=== PATIENT | male | born 1970 | race Caucasian/White ===

== ENCOUNTER 2016-08-21 12:54 | Emergency (ER) | payer SELFPAY ==
[~2016-08-21] VITALS: Ht 172.7 cm; Wt 83.0 kg
[~2016-08-21 12:54] MED LIST: FAMO-134 PO; INSU3INS6 SUBCUT; METO-293 PO; lantus
[2016-08-21] MEDS ORDERED: SODIUM CHLORIDE 0.9% 1,000 ML IV ONE (13:30)
[2016-08-21] MEDS ORDERED: INSULIN REGULAR (HUMULIN R) 300UNITS/3ML IV ONE (13:45)
[2016-08-21 14:24] LABS: CARBON DIOXIDE 22 mEq/L (21-32); CHLORIDE 96 mEq/L (98-107)
[2016-08-21 14:28] LABS: BASOPHILS % 0.7 % (0.0-2.0); EOSINOPHILS % 0.8 % (0.0-5.0); HEMATOCRIT. 45.6 % (42.0-52.0); HEMOGLOBIN. 16.7 g/dL (14.0-18.0); LYMPHOCYTES % 25.2 % (20.0-50.0); MEAN CORPUSCULAR HEMOGLOBIN 30.3 pg (28.0-32.0); MEAN CORPUSCULAR VOLUME 82.5 fL (80.0-94.0); MEAN PLATELET VOLUME 8.6 fl (7.4-10.4); MONOCYTES % 3.4 % (2.0-8.0); NEUTROPHILS % 69.9 % (40.0-76.0); PLATELET 278 x1000/uL (130-400); RED BLOOD CELL COUNT 5.52 mill/uL (4.7-6.1); RED CELL DISTRIBUTION WIDTH 13.3 % (11.6-14.6)
[2016-08-21] MEDS ORDERED: HYDROCODONE/APAP 7.5/325MG 1 TAB TABLET PO PRN (15:00)
[2016-08-21] MEDS ORDERED: INSULIN REGULAR (HUMULIN R) 300UNITS/3ML IV NR (15:00)
[2016-08-21] MEDS ORDERED: SODIUM CHLORIDE 0.9% 1,000 ML IV NR (15:00)
[2016-08-21 15:07] VITALS: BP 112/57
== END 2016-08-21 17:30 | disposition home or self-care (01) ==
LOC: ER 12:55
DX: E10.65 Type 1 diabetes mellitus with hyperglycemia (principal); M19.90 Unspecified osteoarthritis, unspecified site; E78.00 Pure hypercholesterolemia, unspecified; F32.9 Major depressive disorder, single episode, unspecified; E87.6 Hypokalemia; E86.0 Dehydration; E83.51 Hypocalcemia; Z90.410 Acquired total absence of pancreas; Z79.4 Long term (current) use of insulin; Z88.0 Allergy status to penicillin
CPT/HCPCS: 36415; 80048; 82962; 85025; 96361; 96374; 96376; 99285; J1815; J7030; Z7610

== ENCOUNTER 2016-11-22 15:54 | Emergency (ER) | payer OTHER, MEDICAID ==
[~2016-11-22] VITALS: Ht 172.7 cm; Wt 80.0 kg
[2016-11-22] MEDS ORDERED: ONDANSETRON HCL 4MG/2ML VIAL IV STA (16:31)
[2016-11-22] MEDS ORDERED: MORPHINE SULFATE 4 MG/ML CPJ (NOT FOR IM USE) IV STA (16:31)
[2016-11-22] MEDS ORDERED: SODIUM CHLORIDE 0.9% 1,000 ML IV ONE (16:31)
[2016-11-22 16:58] LABS: BASOPHILS % 0.2 % (0.0-2.0); EOSINOPHILS % 0.5 % (0.0-5.0); HEMATOCRIT. 43.5 % (42.0-52.0); HEMOGLOBIN. 15.3 g/dL (14.0-18.0); LYMPHOCYTES % 26.4 % (20.0-50.0); MEAN CORPUSCULAR HEMOGLOBIN 28.8 pg (28.0-32.0); MEAN CORPUSCULAR VOLUME 81.6 fL (80.0-94.0); MEAN PLATELET VOLUME 8.6 fl (7.4-10.4); MONOCYTES % 8.1 % (2.0-8.0); NEUTROPHILS % 64.8 % (40.0-76.0); PLATELET 243 x1000/uL (130-400); RED BLOOD CELL COUNT 5.33 mill/uL (4.7-6.1); RED CELL DISTRIBUTION WIDTH 13.3 % (11.6-14.6)
[2016-11-22 17:04] LABS: CHLORIDE 95 mEq/L (98-107)
[2016-11-22 17:09] LABS: AMYLASE 17 IU/L (25-115); CARBON DIOXIDE 26 mEq/L (21-32)
[2016-11-22 17:17] LABS: BETA HYDROXYBUTYRATE 0.5 mMol/L (0.0-0.3); TROPONIN I < 0.02 ng/mL (0.00-0.04)
[2016-11-22 19:51] VITALS: BP 156/78
== END 2016-11-22 20:30 | disposition home or self-care (01) ==
LOC: CANBEDREQ 19:21 → ER 20:04
DX: E11.65 Type 2 diabetes mellitus with hyperglycemia (principal); E86.0 Dehydration; K85.90 Acute pancreatitis without necrosis or infection, unspecified; I10 Essential (primary) hypertension; E78.00 Pure hypercholesterolemia, unspecified; Z79.4 Long term (current) use of insulin; Z88.0 Allergy status to penicillin
CPT/HCPCS: 36415; 71010; 80053; 82010; 82150; 82962; 83690; 84484; 85025; 93005; 96361; 96374; 96375; 99285; J2270; J2405; J7030; Z7610

== ENCOUNTER 2020-10-04 17:38 | Emergency (ER) | payer MEDICAID, OTHER ==
[~2020-10-04] VITALS: Ht 172.7 cm; Wt 55.0 kg
[~2020-10-04 17:38] MED LIST changes: +LANTUSUD SUBCUT; +TRAM100C3 PO
[2020-10-04] MEDS ORDERED: SODIUM CHLORIDE 0.9% 1,000 ML IV ONE ×2 (18:45→20:15)
[2020-10-04 19:12] LABS: BASOPHILS % 0.1 % (0.0-2.0); EOSINOPHILS % 1.4 % (0.0-5.0); HEMATOCRIT. 39.9 % (42.0-52.0); HEMOGLOBIN. 13.9 g/dL (14.0-18.0); LYMPHOCYTES % 30.2 % (20.0-50.0); MEAN CORPUSCULAR HEMOGLOBIN 30.6 pg (28.0-32.0); MEAN CORPUSCULAR VOLUME 88.1 fL (80.0-94.0); MEAN PLATELET VOLUME 8.8 fl (7.4-10.4); MONOCYTES % 6.7 % (2.0-8.0); NEUTROPHILS % 61.6 % (40.0-76.0); PLATELET 275 x1000/uL (130-400); RED BLOOD CELL COUNT 4.53 mill/uL (4.7-6.1); RED CELL DISTRIBUTION WIDTH 13.7 % (11.6-14.6)
[2020-10-04 19:20] LABS: CHLORIDE 95 mEq/L (98-107)
[2020-10-04] MEDS ORDERED: INSULIN REGULAR (HUMULIN R) 300UNITS/3ML VIAL IV ONE ×2 (20:15→21:00)
[2020-10-04] MEDS ORDERED: POTASSIUM CHLORIDE 20MEQ TABLET SR PO ONE (20:15)
[2020-10-04] MEDS ORDERED: KCL 20MEQ/100ML PREMIX 100 ML IV ONE (20:15)
[2020-10-04] MEDS ORDERED: ACETAMINOPHEN 325MG TABLET PO ONE (23:00)
[2020-10-05 00:44] VITALS: BP 124/71
[2020-10-05] MEDS ORDERED: KETOROLAC 15MG/ML VIAL IV ONE (00:45)
== END 2020-10-05 01:32 | disposition short-term general hospital (02) ==
LOC: ER 17:38 → CANBEDREQ 23:33 → ER 10-05 01:32
DX: R55 Syncope and collapse (principal); R10.84 Generalized abdominal pain; E11.65 Type 2 diabetes mellitus with hyperglycemia; D64.9 Anemia, unspecified; E87.1 Hypo-osmolality and hyponatremia; I44.4 Left anterior fascicular block; E87.6 Hypokalemia; I10 Essential (primary) hypertension; F12.90 Cannabis use, unspecified, uncomplicated; Z79.4 Long term (current) use of insulin; Z87.19 Personal history of other diseases of the digestive system; Z79.899 Other long term (current) drug therapy; Z91.81 History of falling
CPT/HCPCS: 36415; 71045; 74176; 80053; 82962; 84484; 85025; 93005; 96361; 96374; 96375; 99285; J1815; J1885; J3480; J7030

== ENCOUNTER 2021-08-30 18:58 | Emergency (ER) | payer OTHER ==
[~2021-08-30] VITALS: Ht 170.2 cm; Wt 54.0 kg
[2021-08-30] MEDS ORDERED: SODIUM CHLORIDE 0.9% 1,000 ML IV ONE ×2 (21:45→22:45)
[2021-08-30 21:57] LABS: BASOPHILS % 0.1 % (0.0-2.0); HEMATOCRIT. 37.2 % (42.0-52.0); HEMOGLOBIN. 12.5 g/dL (14.0-18.0); LYMPHOCYTES % 21.9 % (20.0-50.0); MEAN CORPUSCULAR HEMOGLOBIN 29.3 pg (28.0-32.0); MEAN CORPUSCULAR VOLUME 86.9 fL (80.0-94.0); MEAN PLATELET VOLUME 8.7 fl (7.4-10.4); MONOCYTES % 7.7 % (2.0-8.0); NEUTROPHILS % 69.3 % (40.0-76.0); PLATELET 218 x1000/uL (130-400); RED BLOOD CELL COUNT 4.28 mill/uL (4.7-6.1); RED CELL DISTRIBUTION WIDTH 13.3 % (11.6-14.6)
[2021-08-30 22:04] LABS: CHLORIDE 97 mEq/L (98-107)
[2021-08-30 22:14] LABS: BETA HYDROXYBUTYRATE 0.5 mMol/L (0.0-0.3)
[2021-08-30 22:44] LABS: CLARITY URINE CLOUDY (CLEAR); COLOR URINE YELLOW (YELLOW); KETONES URINE 1+ (NEGATIVE); LEUKOCYTE ESTERASE URINE 1+ (NEGATIVE); NITRITE URINE NEGATIVE (NEGATIVE); OCCULT BLOOD URINE TRACE (NEGATIVE); PH URINE 5.5 (4.5-8.0); PROTEIN URINE TRACE (NEGATIVE); SPECIFIC GRAVITY URINE 1.039 (1.005-1.030); UROBILINOGEN URINE 0.2 E.U./dL (0.2-1.0)
[2021-08-30] MEDS ORDERED: KETOROLAC 15MG/ML VIAL IV ONE (22:45)
[2021-08-30] MEDS ORDERED: INSULIN REGULAR (HUMULIN R) 300UNITS/3ML VIAL SUBCUT ONE (22:45)
[2021-08-31] MEDS ORDERED: CEFTRIAXONE 1 G PREMIX 50 ML IV ONE
[2021-08-31] MEDS ORDERED: HYDROCODONE/ACETAMINOPHEN 5/325MG TABLET PO ONE (01:15)
[2021-08-31] MEDS ORDERED: INSULIN REGULAR (HUMULIN R) 300UNITS/3ML VIAL SUBCUT ONE (01:15)
[2021-08-31] MEDS ORDERED: MORPHINE SULFATE 4 MG/ML CPJ (NOT FOR IM USE) IV ONE ×2 (03:00→06:00)
[2021-08-31 07:28] VITALS: BP 91/55
[2021-08-31] MEDS ORDERED: ACETAMINOPHEN 325MG TABLET PO NR (08:15)
== END 2021-08-31 05:55 | disposition short-term general hospital (02) ==
LOC: ER 18:58
DX: N30.90 Cystitis, unspecified without hematuria (principal); E11.65 Type 2 diabetes mellitus with hyperglycemia; R55 Syncope and collapse; I10 Essential (primary) hypertension; F12.10 Cannabis abuse, uncomplicated; Z79.899 Other long term (current) drug therapy
CPT/HCPCS: 36415; 70450; 71045; 80053; 81003; 82010; 82962; 83690; 84484; 85025; 87040; 87086; 93005; 96361; 96372; 96374; 96375; 96376; 99285; J0696; J1815; J1885; J2270; J7030

== ENCOUNTER 2021-10-28 17:20 | Inpatient (IN) | payer OTHER ==
[~2021-10-28] VITALS: Ht 172.7 cm; Wt 43.1 kg
[2021-10-28 21:19] LABS: BASOPHILS % 0.1 % (0.0-2.0); EOSINOPHILS % 0.4 % (0.0-5.0); HEMATOCRIT. 36.8 % (42.0-52.0); HEMOGLOBIN. 12.8 g/dL (14.0-18.0); LYMPHOCYTES % 36.2 % (20.0-50.0); MEAN CORPUSCULAR HEMOGLOBIN 29.3 pg (28.0-32.0); MEAN PLATELET VOLUME 7.4 fl (7.4-10.4); MONOCYTES % 6.3 % (2.0-8.0); PLATELET 300 x1000/uL (130-400); RED BLOOD CELL COUNT 4.38 mill/uL (4.7-6.1); RED CELL DISTRIBUTION WIDTH 12.8 % (11.6-14.6)
[2021-10-28] MEDS ORDERED: ONDANSETRON HCL 4MG/2ML INJ IV NR (21:25)
[2021-10-28] MEDS ORDERED: MORPHINE SULFATE 4 MG/ML CPJ (NOT FOR IM USE) IV NR (21:25)
[2021-10-28 21:26] LABS: CHLORIDE 93 mEq/L (98-107)
[2021-10-28] MEDS ORDERED: SODIUM CHLORIDE 0.9% 1,000 ML IV ONE (21:30)
[2021-10-28 21:32] LABS: INR 1.1; PROTHROMBIN TIME 11.3 sec (9.6-11.0)
[2021-10-28 22:21] LABS: CLARITY URINE CLOUDY (CLEAR); COLOR URINE YELLOW (YELLOW); KETONES URINE 2+ (NEGATIVE); LEUKOCYTE ESTERASE URINE 1+ (NEGATIVE); NITRITE URINE NEGATIVE (NEGATIVE); OCCULT BLOOD URINE NEGATIVE (NEGATIVE); PH URINE 6.5 (4.5-8.0); PROTEIN URINE TRACE (NEGATIVE); SPECIFIC GRAVITY URINE 1.045 (1.005-1.030); UROBILINOGEN URINE 0.2 E.U./dL (0.2-1.0)
[2021-10-28] MEDS ORDERED: KCL 10MEQ/50ML PREMIX 50 ML IV ONE (23:00)
[2021-10-28] MEDS ORDERED: CEFTRIAXONE 1 G PREMIX 50 ML IV NR (23:00)
[2021-10-28] MEDS ORDERED: POTASSIUM CHLORIDE 20MEQ TABLET SR PO ONE (23:00)
[2021-10-29] MEDS ORDERED: MAGNESIUM 1 G PREMIX 100 ML IV ONE (00:45)
[2021-10-29] MEDS ORDERED: KETOROLAC 15MG/ML VIAL IV ONE (03:45)
[2021-10-29 08:45] VITALS: BP 129/92
[2021-10-29 10:00] VITALS: BP 129/92
[2021-10-29] MEDS ORDERED: ONDANSETRON HCL 4MG/2ML INJ IV PRN (10:30)
[2021-10-29] MEDS ORDERED: DEXTROSE 50% WATER 50ML SYRINGE IV PRN (10:30)
[2021-10-29] MEDS ORDERED: ACETAMINOPHEN 325MG TABLET PO PRN (10:30)
[2021-10-29] MEDS ORDERED: CEFTRIAXONE 1 G PREMIX 50 ML IV SCH (10:30)
[2021-10-29 12:00] VITALS: BP 114/86
[2021-10-29] MEDS: BLOOD SUGAR DIAGNOSTIC STRIP TEST SCH ×3 (12:20→21:00)
[2021-10-29] MEDS ORDERED: NALOXONE HCL 0.4MG/ML VIAL IV PRN (13:00)
[2021-10-29] MEDS: CEFTRIAXONE 1,000 MG in DEXTROSE 5% WATER 50 ML IV SCH (13:46)
[2021-10-29] MEDS: HYDROCODONE/ACETAMINOPHEN 5/325MG TABLET PO PRN ×2 (13:47→21:36)
[2021-10-29] MEDS: INSULIN LISPRO 100 UNITS/ML SUBCUT SCH ×3 (13:55→21:35)
[2021-10-29 16:00] VITALS: BP 126/88
[2021-10-29] MEDS ORDERED: METOCLOPRAMIDE HCL 10MG/2ML VIAL IV NR ×2 (16:30→20:30)
[2021-10-29] MEDS ORDERED: BISACODYL 5MG TABLET PO NR ×2 (16:30→20:30)
[2021-10-29] MEDS ORDERED: SORBITOL 70% SOLN 30ML PO NR ×2 (17:00→21:00)
[2021-10-29] MEDS: SODIUM CHLORIDE 0.45% 1,000 ML IV SCH (18:22)
[2021-10-29 20:00] VITALS: BP 88/59
[2021-10-29 21:40] LABS: CHLORIDE 102 mEq/L (98-107)
[2021-10-30] VITALS: BP 112/68
[2021-10-30] MEDS ORDERED: POTASSIUM CHLORIDE 20MEQ TABLET SR PO NR (00:15)
[2021-10-30] MEDS: SODIUM CHLORIDE 0.45% 1,000 ML IV SCH ×2 (02:05→14:36)
[2021-10-30 04:00] VITALS: BP 118/83
[2021-10-30 07:11] LABS: BASOPHILS % 0.1 % (0.0-2.0); CHLORIDE 101 mEq/L (98-107); EOSINOPHILS % 0.8 % (0.0-5.0); HEMATOCRIT. 37.2 % (42.0-52.0); HEMOGLOBIN. 12.9 g/dL (14.0-18.0); LYMPHOCYTES % 41.1 % (20.0-50.0); MEAN CORPUSCULAR HEMOGLOBIN 29.4 pg (28.0-32.0); MEAN CORPUSCULAR VOLUME 84.7 fL (80.0-94.0); MEAN PLATELET VOLUME 8.1 fl (7.4-10.4); PLATELET 309 x1000/uL (130-400); RED BLOOD CELL COUNT 4.39 mill/uL (4.7-6.1)
[2021-10-30 07:21] LABS: INR 1.1; PROTHROMBIN TIME 11.9 sec (9.6-11.0); TOTAL IRON BINDING CAPACITY 211 ug/dL (250-450)
[2021-10-30 07:30] LABS: FERRITIN 297 ng/mL (22-322)
[2021-10-30 07:40] LABS: VITAMIN B12 SERUM >2000 pg/mL pg/mL (211-911)
[2021-10-30 08:00] VITALS: BP 154/100
[2021-10-30] MEDS: BLOOD SUGAR DIAGNOSTIC STRIP TEST SCH ×4 (08:17→21:00)
[2021-10-30] MEDS: INSULIN LISPRO 100 UNITS/ML SUBCUT SCH ×3 (08:22→18:12)
[2021-10-30] MEDS ORDERED: LORAZEPAM 1MG TABLET PO NR (10:00)
[2021-10-30] MEDS ORDERED: NITR0.4T49 SL (11:12)
[2021-10-30] MEDS: HYDROCODONE/ACETAMINOPHEN 5/325MG TABLET PO PRN (11:20)
[2021-10-30] MEDS ORDERED: *PATIENT'S OWN MEDICATION STORAGE XX SCH (11:30)
[2021-10-30 12:00] VITALS: BP 157/100
[2021-10-30] MEDS ORDERED: NICOTINE 14MG PATCH TD SCH (12:45)
[2021-10-30] MEDS ORDERED: POTASSIUM CHLORIDE 20MEQ TABLET SR PO SCH (12:45)
[2021-10-30] MEDS: METOCLOPRAMIDE HCL 10MG/2ML VIAL IV SCH ×3 (14:31→21:23)
[2021-10-30] MEDS: SORBITOL 70% SOLN 30ML PO SCH ×2 (14:31→18:11)
[2021-10-30] MEDS: BISACODYL 5MG TABLET PO SCH ×3 (14:32→21:24)
[2021-10-30] MEDS: CEFTRIAXONE 1,000 MG in DEXTROSE 5% WATER 50 ML IV SCH (14:36)
[2021-10-30] MEDS: MIDODRINE HCL 5MG TABLET PO SCH ×2 (14:40→16:39)
[2021-10-30 16:00] VITALS: BP 96/68
[2021-10-31] MEDS: INSULIN LISPRO 100 UNITS/ML SUBCUT SCH ×5 (01:28→21:46)
[2021-10-31] MEDS: METOCLOPRAMIDE HCL 10MG/2ML VIAL IV SCH (01:40)
[2021-10-31 03:05] LABS: BASOPHILS % 0.1 % (0.0-2.0); EOSINOPHILS % 0.9 % (0.0-5.0); HEMATOCRIT. 36.4 % (42.0-52.0); HEMOGLOBIN. 12.4 g/dL (14.0-18.0); MEAN CORPUSCULAR HEMOGLOBIN 29.4 pg (28.0-32.0); MEAN CORPUSCULAR VOLUME 86.1 fL (80.0-94.0); MEAN PLATELET VOLUME 7.9 fl (7.4-10.4); MONOCYTES % 6.9 % (2.0-8.0); NEUTROPHILS % 66.1 % (40.0-76.0); PLATELET 315 x1000/uL (130-400); RED BLOOD CELL COUNT 4.22 mill/uL (4.7-6.1); RED CELL DISTRIBUTION WIDTH 13.1 % (11.6-14.6)
[2021-10-31 03:27] LABS: CHLORIDE 105 mEq/L (98-107)
[2021-10-31 03:35] LABS: PROTHROMBIN TIME 11.1 sec (9.6-11.0)
[2021-10-31] MEDS: SORBITOL 70% SOLN 30ML PO SCH ×2 (03:50→06:50)
[2021-10-31 04:00] VITALS: BP 99/73
[2021-10-31] MEDS: BISACODYL 5MG TABLET PO SCH (06:50)
[2021-10-31] MEDS ORDERED: SODIUM CHLORIDE 0.9% 500 ML IV ONE ×2 (07:00→07:30)
[2021-10-31] MEDS: BLOOD SUGAR DIAGNOSTIC STRIP TEST SCH ×4 (07:41→21:47)
[2021-10-31] MEDS: SODIUM CHLORIDE 0.9% 1,000 ML IV SCH ×2 (07:56→18:37)
[2021-10-31 08:00] VITALS: BP 120/89
[2021-10-31] MEDS: MIDODRINE HCL 5MG TABLET PO SCH ×4 (08:24→18:37)
[2021-10-31] MEDS: INSULIN GLARGINE 100 UNITS/ML SUBCUT SCH ×2 (09:40→21:31)
[2021-10-31 12:00] VITALS: BP 106/69
[2021-10-31] MEDS ORDERED: DEXAMETHASONE 4MG/ML 1ML VIAL ONE (12:08)
[2021-10-31] MEDS ORDERED: PROPOFOL 200MG/20ML VIAL IV ONE ×2 (12:08→12:53)
[2021-10-31] MEDS ORDERED: ONDANSETRON HCL 4MG/2ML INJ ONE (12:08)
[2021-10-31] MEDS ORDERED: DIATR MEGLU/DIATRIZOATE SOLN 30ML PO SCH (14:00)
[2021-10-31] MEDS: CEFTRIAXONE 1,000 MG in DEXTROSE 5% WATER 50 ML IV SCH (14:23)
[2021-10-31] MEDS ORDERED: DIATR MEGLU/DIATRIZOATE SOLN 30ML PO NR ×2 (15:00→15:15)
[2021-10-31] MEDS ORDERED: DIATR MEGLU/DIATRIZOATE SOLN 30ML PO ONE ×2 (15:30→16:00)
[2021-10-31 16:00] VITALS: BP 115/80
[2021-10-31] MEDS: LORAZEPAM 1MG TABLET PO PRN (18:53)
[2021-10-31] MEDS ORDERED: IOHEXOL-300 100 ML BOTTLE ONE (19:30)
[2021-10-31 20:00] VITALS: BP 120/81
[2021-10-31] MEDS ORDERED: INSULIN LISPRO 100 UNITS/ML SUBCUT NR (21:41)
[2021-11-01] VITALS: BP 104/61
[2021-11-01] MEDS: SODIUM CHLORIDE 0.9% 1,000 ML IV SCH ×3 (03:00→23:00)
[2021-11-01 04:12] VITALS: BP 107/63
[2021-11-01] MEDS: HYDROCODONE/ACETAMINOPHEN 5/325MG TABLET PO PRN ×2 (04:36→08:50)
[2021-11-01] MEDS: LORAZEPAM 1MG TABLET PO PRN (04:36)
[2021-11-01] MEDS: LOPERAMIDE HCL 2MG CAPSULE PO PRN ×2 (04:36→23:10)
[2021-11-01 07:08] LABS: BASOPHILS % 0.1 % (0.0-2.0); EOSINOPHILS % 0.1 % (0.0-5.0); HEMATOCRIT. 33.7 % (42.0-52.0); HEMOGLOBIN. 11.5 g/dL (14.0-18.0); LYMPHOCYTES % 23.8 % (20.0-50.0); MEAN CORPUSCULAR HEMOGLOBIN 29.5 pg (28.0-32.0); MEAN CORPUSCULAR VOLUME 86.8 fL (80.0-94.0); MEAN PLATELET VOLUME 8.3 fl (7.4-10.4); MONOCYTES % 7.3 % (2.0-8.0); NEUTROPHILS % 68.7 % (40.0-76.0); PLATELET 277 x1000/uL (130-400); RED BLOOD CELL COUNT 3.88 mill/uL (4.7-6.1); RED CELL DISTRIBUTION WIDTH 13.6 % (11.6-14.6)
[2021-11-01 07:30] LABS: CHLORIDE 110 mEq/L (98-107)
[2021-11-01] MEDS: BLOOD SUGAR DIAGNOSTIC STRIP TEST SCH ×4 (07:46→21:00)
[2021-11-01 08:00] VITALS: BP 101/72
[2021-11-01] MEDS: INSULIN LISPRO 100 UNITS/ML SUBCUT SCH ×3 (08:12→17:28)
[2021-11-01] MEDS: MIDODRINE HCL 5MG TABLET PO SCH ×3 (08:49→17:00)
[2021-11-01] MEDS: TAMSULOSIN HCL 0.4MG SR CAPSULE PO SCH (08:53)
[2021-11-01] MEDS: INSULIN GLARGINE 100 UNITS/ML SUBCUT SCH (09:48)
[2021-11-01 12:00] VITALS: BP_SYST 88; BP_SYST 98; BP_DIAS 51; BP_DIAS 63
[2021-11-01] MEDS ORDERED: LIPASE/PROTEASE/AMYLASE 4,200/14,200/24,600 UNITS CAP DR PO SCH (12:50)
[2021-11-01] MEDS ORDERED: METOCLOPRAMIDE HCL 5MG TABLET PO PRN (13:00)
[2021-11-01] MEDS: CEFTRIAXONE 1,000 MG in DEXTROSE 5% WATER 50 ML IV SCH (14:11)
[2021-11-01 16:00] VITALS: BP 98/63
[2021-11-01] MEDS: LIPASE/PROTEASE/AMYLASE 4,200/14,200/24,600 UNITS CAP DR PO SCH (17:32)
[2021-11-01] MEDS: FINASTERIDE 5MG TABLET PO SCH (17:32)
[2021-11-01] MEDS ORDERED: OMEP40CA20 MT (18:21)
[2021-11-01 20:00] VITALS: BP 78/41
[2021-11-02] VITALS: BP 95/65
[2021-11-02] MEDS: INSULIN LISPRO 100 UNITS/ML SUBCUT SCH (00:10)
[2021-11-02] MEDS: INSULIN GLARGINE 100 UNITS/ML SUBCUT SCH ×2 (00:18→10:00)
[2021-11-02 04:00] VITALS: BP 93/62
[2021-11-02] MEDS: BLOOD SUGAR DIAGNOSTIC STRIP TEST SCH ×2 (07:20→12:20)
[2021-11-02 07:30] LABS: BASOPHILS % 0.1 % (0.0-2.0); EOSINOPHILS % 1.6 % (0.0-5.0); HEMOGLOBIN. 10.4 g/dL (14.0-18.0); LYMPHOCYTES % 31.2 % (20.0-50.0); MEAN CORPUSCULAR HEMOGLOBIN 29.9 pg (28.0-32.0); MEAN CORPUSCULAR VOLUME 86.4 fL (80.0-94.0); MEAN PLATELET VOLUME 8.3 fl (7.4-10.4); MONOCYTES % 7.7 % (2.0-8.0); NEUTROPHILS % 59.4 % (40.0-76.0); PLATELET 237 x1000/uL (130-400); RED BLOOD CELL COUNT 3.47 mill/uL (4.7-6.1); RED CELL DISTRIBUTION WIDTH 13.4 % (11.6-14.6)
[2021-11-02] MEDS: LIPASE/PROTEASE/AMYLASE 4,200/14,200/24,600 UNITS CAP DR PO SCH ×2 (07:50→12:50)
[2021-11-02 07:54] LABS: CHLORIDE 113 mEq/L (98-107)
[2021-11-02 08:00] VITALS: BP 110/68
[2021-11-02] MEDS: SODIUM CHLORIDE 0.9% 1,000 ML IV SCH (09:00)
[2021-11-02] MEDS ORDERED: FINASTERIDE 5MG TABLET PO SCH (09:00)
[2021-11-02] MEDS: LORAZEPAM 1MG TABLET PO PRN (09:01)
[2021-11-02] MEDS: LOPERAMIDE HCL 2MG CAPSULE PO PRN (09:01)
[2021-11-02] MEDS: TAMSULOSIN HCL 0.4MG SR CAPSULE PO SCH (09:08)
[2021-11-02] MEDS: MIDODRINE HCL 5MG TABLET PO SCH ×2 (09:09→13:00)
[2021-11-02] MEDS: FINASTERIDE 5MG TABLET PO SCH (09:10)
[2021-11-02 12:43] VITALS: BP 111/64
[2021-11-02 16:00] VITALS: BP 116/72
[2021-11-02 16:06] VITALS: BP 111/64
[2021-11-02] MEDS ORDERED: LIPA1CAP27 PO (16:12)
[2021-11-02] MEDS ORDERED: TAMS-11 PO (16:12)
[2021-11-02] MEDS ORDERED: FINA5TAB11 PO (16:12)
== END 2021-11-02 19:30 | disposition home or self-care (01) | DRG 249 ==
LOC: ER 17:20 → ENRESERV 10-29 07:12 → 6EST 10-29 08:55
PROVIDERS: ADMIT Internal Medicine; ATTEND Internal Medicine
PROC: 0DB68ZX Excision of Stomach, Via Natural or Artificial Opening Endoscopic, Diagnostic (ICD-10-PCS; principal; 2021-10-31)
PROC: 0DBB8ZX Excision of Ileum, Via Natural or Artificial Opening Endoscopic, Diagnostic (ICD-10-PCS; 2021-10-31)
DX: K52.9 Noninfective gastroenteritis and colitis, unspecified (principal); E43 Unspecified severe protein-calorie malnutrition; E87.8 Other disorders of electrolyte and fluid balance, not elsewhere classified; N12 Tubulo-interstitial nephritis, not specified as acute or chronic; E11.65 Type 2 diabetes mellitus with hyperglycemia; D64.9 Anemia, unspecified; E83.42 Hypomagnesemia; E87.6 Hypokalemia; K29.70 Gastritis, unspecified, without bleeding; Z20.822 Contact with and (suspected) exposure to COVID-19; N39.0 Urinary tract infection, site not specified; K31.89 Other diseases of stomach and duodenum; I10 Essential (primary) hypertension; N40.0 Benign prostatic hyperplasia without lower urinary tract symptoms; R63.4 Abnormal weight loss; F41.9 Anxiety disorder, unspecified; F17.210 Nicotine dependence, cigarettes, uncomplicated; Z79.899 Other long term (current) drug therapy; Z68.1 Body mass index [BMI] 19.9 or less, adult; Z82.49 Family history of ischemic heart disease and other diseases of the circulatory system; Z90.411 Acquired partial absence of pancreas; Z71.6 Tobacco abuse counseling; Z87.19 Personal history of other diseases of the digestive system
CPT/HCPCS: 36415; 71045; 74176; 74177; 80048; 80053; 81003; 82010; 82105; 82270; 82378; 82607; 82728; 82746; 82962; 83540; 83550; 83735; 83880; 84484; 85025; 87015; 87045; 87426; 87427; 87449; 87493; 88305; 88312; 88313; 93005; 97162; 99285; J0696; J1100; J1815; J1885; J2270; J2405; J2704; J2765; J3475; J3480; J7030; J7060; Q9963; Q9967; A4315

== ENCOUNTER 2022-02-04 16:21 | Inpatient (IN) | payer MEDICARE, OTHER ==
[~2022-02-04] VITALS: Ht 172.7 cm; Wt 64.9 kg
[~2022-02-04 16:21] MED LIST changes: -FAMO-134 PO; +FINA5TAB11 PO; +LIPA1CAP27 PO; +NITR0.4T49 SL; +OMEP40CA20 MT; +TAMS-11 PO
[2022-02-04 17:56] LABS: BG BASE EXCESS -0.4 mmol/L (-2.0-2.0); BG CARBOXYHEMOGLOBIN 1.8 % (0.5-1.5); BG DEOXYHEMOGLOBIN 4.6 % (0.0-5.0); BG FRACTION INSPIRED OXYGEN 21; BG HCO3 ACT 25.7 mmol/L (22.0-26.0); BG METHEMOGLOBIN 0.3 % (0.0-1.5); BG OXYGEN SATURATION 95.3 % (92.0-98.5); BG OXYHEMOGLOBIN 93.3 % (94.0-97.0); BG PCO2 48.3 mmHg (35.0-45.0); BG PH 7.344 (7.350-7.450); BG PO2 74.1 mmHg (75.0-100.0); BG SAMPLE SITE RIGHT RADIAL; BG TOTAL HEMOGLOBIN 12.7 g/dL (12.0-18.0); BG VENT MODE ROOM AIR
[2022-02-04 18:03] LABS: BASOPHILS % 0.4 % (0.0-2.0); EOSINOPHILS % 0.9 % (0.0-5.0); HEMATOCRIT. 35.5 % (42.0-52.0); HEMOGLOBIN. 11.6 g/dL (14.0-18.0); LYMPHOCYTES % 25.4 % (20.0-50.0); MEAN CORPUSCULAR HEMOGLOBIN 29.7 pg (28.0-32.0); MEAN CORPUSCULAR VOLUME 90.6 fL (80.0-94.0); MEAN PLATELET VOLUME 8.4 fl (7.4-10.4); NEUTROPHILS % 66.3 % (40.0-76.0); PLATELET 212 x1000/uL (130-400); RED BLOOD CELL COUNT 3.92 mill/uL (4.7-6.1); RED CELL DISTRIBUTION WIDTH 14.1 % (11.6-14.6)
[2022-02-04 18:10] LABS: CHLORIDE 95 mEq/L (98-107)
[2022-02-04] MEDS ORDERED: SODIUM CHLORIDE 0.9% 1,000 ML IV ONE ×2 (18:15→21:00)
[2022-02-04 18:22] LABS: BETA HYDROXYBUTYRATE 0.1 mMol/L (0.0-0.3)
[2022-02-04] MEDS ORDERED: INSULIN REGULAR (HUMULIN R) 300UNITS/3ML VIAL IV ONE (19:15)
[2022-02-04] MEDS ORDERED: INSULIN REGULAR (DRIP) 100 UNITS in SODIUM CHLORIDE 0.9% 99 ML IV SCH (19:45)
[2022-02-04] MEDS ORDERED: POTASSIUM CHLORIDE 20MEQ/PACKET PO ONE (19:45)
[2022-02-04] MEDS ORDERED: ONDANSETRON HCL 4MG/2ML INJ IV ONE (19:45)
[2022-02-04] MEDS ORDERED: INSULIN REGULAR 100U/100ML PMX 100 ML IV NR (20:00)
[2022-02-04] MEDS ORDERED: MORPHINE SULFATE 4 MG/ML CPJ (NOT FOR IM USE) IV ONE (21:00)
[2022-02-04 22:46] LABS: CHLORIDE 101 mEq/L (98-107)
[2022-02-04] MEDS ORDERED: ONDANSETRON HCL 4MG/2ML INJ IV PRN (23:00)
[2022-02-04] MEDS ORDERED: INSULIN REGULAR (HUMULIN R) 300UNITS/3ML VIAL IV PRN (23:00)
[2022-02-04] MEDS ORDERED: DEXTROSE 50% WATER 50ML SYRINGE IV PRN (23:00)
[2022-02-04] MEDS ORDERED: IPRATROPIUM/ALBUTEROL 0.5-3(2.5)MG/3ML NEB HHN PRN (23:00)
[2022-02-04] MEDS ORDERED: SODIUM CHLORIDE 0.45% 1,000 ML IV SCH (23:00)
[2022-02-04] MEDS ORDERED: KCL 20MEQ/100ML PREMIX 100 ML IV PRN (23:00)
[2022-02-04] MEDS ORDERED: ACETAMINOPHEN 650MG SUPP PR PRN ×2 (23:00)
[2022-02-04] MEDS ORDERED: NALOXONE HCL 0.4MG/ML VIAL IV PRN (23:30)
[2022-02-04] MEDS ORDERED: HYDRALAZINE 20MG/ML VIAL IV PRN (23:30)
[2022-02-04] MEDS: SODIUM CHLORIDE 0.9% 1,000 ML IV SCH (23:39)
[2022-02-04] MEDS: DEXT 5%/0.45% NACL 1000ML 1,000 ML IV SCH (23:39)
[2022-02-04] MEDS: BLOOD SUGAR DIAGNOSTIC STRIP TEST SCH (23:39)
[2022-02-05] MEDS ORDERED: INSULIN REGULAR 100U/100ML PMX 100 ML IV SCH
[2022-02-05 00:12] LABS: VITAMIN B12 SERUM 1905 pg/mL (211-911)
[2022-02-05] MEDS: BLOOD SUGAR DIAGNOSTIC STRIP TEST SCH ×14 (00:41→21:30)
[2022-02-05 01:24] LABS: CREATINE KINASE MB FRACTION 4.4 ng/mL (0.5-3.6); PHOSPHORUS 1.8 mg/dL (2.5-4.9)
[2022-02-05 01:26] LABS: TOTAL IRON BINDING CAPACITY 217 ug/dL (250-450)
[2022-02-05] MEDS: SODIUM CHLORIDE 0.9% 1,000 ML IV SCH (03:00)
[2022-02-05] MEDS ORDERED: POTASSIUM PHOS,M-BASIC-D-BASIC 30 MMOL in DEXT 5% WATER 500 ML IV NR (04:30)
[2022-02-05] MEDS: FAMOTIDINE 20MG/2ML VIAL IV SCH ×3 (04:30→21:54)
[2022-02-05] MEDS ORDERED: NITROGLYCERIN 0.4MG TABLET SL SL PRN (04:45)
[2022-02-05] MEDS: DEXT 5%/0.45% NACL 1000ML 1,000 ML IV SCH ×3 (05:40→21:54)
[2022-02-05 06:47] LABS: BASOPHILS % 0.2 % (0.0-2.0); HEMATOCRIT. 27.6 % (42.0-52.0); HEMOGLOBIN. 9.5 g/dL (14.0-18.0); LYMPHOCYTES % 39.3 % (20.0-50.0); MEAN CORPUSCULAR HEMOGLOBIN 30.2 pg (28.0-32.0); MEAN CORPUSCULAR VOLUME 87.7 fL (80.0-94.0); MEAN PLATELET VOLUME 8.4 fl (7.4-10.4); MONOCYTES % 7.4 % (2.0-8.0); NEUTROPHILS % 51.1 % (40.0-76.0); PLATELET 165 x1000/uL (130-400); RED BLOOD CELL COUNT 3.14 mill/uL (4.7-6.1); RED CELL DISTRIBUTION WIDTH 13.8 % (11.6-14.6)
[2022-02-05 06:49] LABS: CHLORIDE 108 mEq/L (98-107)
[2022-02-05 07:03] LABS: CREATINE KINASE MB FRACTION 4.2 ng/mL (0.5-3.6)
[2022-02-05 07:04] LABS: HDL CHOLESTEROL 41 mg/dL (40-59); LDL CHOLESTEROL 65 mg/dL (5-100); T4 FREE 0.93 ng/dL (0.76-1.46)
[2022-02-05 07:07] LABS: CHLORIDE 108 mEq/L (98-107)
[2022-02-05 07:18] LABS: PHOSPHORUS 1.8 mg/dL (2.5-4.9)
[2022-02-05] MEDS ORDERED: DEXTROSE 50% WATER 50ML SYRINGE IV PRN (08:45)
[2022-02-05] MEDS: INSULIN LISPRO 100 UNITS/ML SUBCUT SCH ×6 (08:45→21:55)
[2022-02-05] MEDS ORDERED: INSULIN GLARGINE 100 UNITS/ML SUBCUT SCH (09:00)
[2022-02-05] MEDS: ENOXAPARIN 40MG/0.4ML SYR SUBCUT SCH (09:00)
[2022-02-05 10:01] LABS: CHLORIDE 108 mEq/L (98-107)
[2022-02-05 10:09] LABS: PHOSPHORUS 2.8 mg/dL (2.5-4.9)
[2022-02-05 17:00] VITALS: BP 114/76
[2022-02-05] MEDS: MORPHINE SULFATE 2 MG/ML CPJ (NOT FOR IM USE) IV PRN (18:19)
[2022-02-05 18:49] LABS: CHLORIDE 106 mEq/L (98-107)
[2022-02-05 19:22] LABS: CREATINE KINASE 86 IU/L (39-308); CREATINE KINASE MB FRACTION 4.4 ng/mL (0.5-3.6)
[2022-02-05 20:00] VITALS: BP 117/73
[2022-02-06] VITALS: BP 121/74
[2022-02-06] MEDS: INSULIN GLARGINE 100 UNITS/ML SUBCUT SCH ×2 (00:51→22:00)
[2022-02-06] MEDS: DEXT 5%/0.45% NACL 1000ML 1,000 ML IV SCH (00:52)
[2022-02-06 04:00] VITALS: BP 100/57
[2022-02-06] MEDS: MORPHINE SULFATE 2 MG/ML CPJ (NOT FOR IM USE) IV PRN ×3 (04:55→17:17)
[2022-02-06] MEDS: BLOOD SUGAR DIAGNOSTIC STRIP TEST SCH ×4 (06:11→21:31)
[2022-02-06 06:59] LABS: BASOPHILS % 0.5 % (0.0-2.0); EOSINOPHILS % 2.2 % (0.0-5.0); HEMATOCRIT. 28.6 % (42.0-52.0); HEMOGLOBIN. 9.8 g/dL (14.0-18.0); LYMPHOCYTES % 33.3 % (20.0-50.0); MEAN CORPUSCULAR VOLUME 87.5 fL (80.0-94.0); MEAN PLATELET VOLUME 8.7 fl (7.4-10.4); MONOCYTES % 8.5 % (2.0-8.0); NEUTROPHILS % 55.5 % (40.0-76.0); PLATELET 174 x1000/uL (130-400); RED BLOOD CELL COUNT 3.27 mill/uL (4.7-6.1); RED CELL DISTRIBUTION WIDTH 13.9 % (11.6-14.6)
[2022-02-06 07:35] LABS: CHLORIDE 107 mEq/L (98-107)
[2022-02-06] MEDS: INSULIN LISPRO 100 UNITS/ML SUBCUT SCH ×9 (07:40→21:30)
[2022-02-06 08:00] VITALS: BP 129/88
[2022-02-06] MEDS: FAMOTIDINE 20MG/2ML VIAL IV SCH (08:31)
[2022-02-06] MEDS: ENOXAPARIN 40MG/0.4ML SYR SUBCUT SCH (08:31)
[2022-02-06 12:00] VITALS: BP 91/55
[2022-02-06 16:00] VITALS: BP 111/75
[2022-02-06] MEDS: SPIRONOLACTONE 25MG TABLET PO SCH (16:21)
[2022-02-06] MEDS: FUROSEMIDE 40MG/4ML VIAL IVP SCH (16:21)
[2022-02-06 16:29] LABS: CHLORIDE 106 mEq/L (98-107)
[2022-02-06 19:14] LABS: CLARITY URINE CLOUDY (CLEAR); COLOR URINE YELLOW (YELLOW); KETONES URINE NEGATIVE (NEGATIVE); LEUKOCYTE ESTERASE URINE 3+ (NEGATIVE); NITRITE URINE NEGATIVE (NEGATIVE); OCCULT BLOOD URINE TRACE (NEGATIVE); PH URINE 5.5 (4.5-8.0); PROTEIN URINE NEGATIVE (NEGATIVE); SPECIFIC GRAVITY URINE 1.011 (1.005-1.030); UROBILINOGEN URINE 0.2 E.U./dL (0.2-1.0)
[2022-02-06] MEDS ORDERED: KCL 20MEQ/100ML PREMIX 100 ML IV PRN (19:15)
[2022-02-06 20:00] VITALS: BP 120/78
[2022-02-06] MEDS: FAMOTIDINE 20MG TABLET PO SCH (21:28)
[2022-02-07] VITALS: BP 110/62
[2022-02-07] MEDS: MORPHINE SULFATE 2 MG/ML CPJ (NOT FOR IM USE) IV PRN ×2 (00:47→20:54)
[2022-02-07 04:00] VITALS: BP 107/72
[2022-02-07] MEDS: BLOOD SUGAR DIAGNOSTIC STRIP TEST SCH ×4 (05:58→20:50)
[2022-02-07 06:47] LABS: BASOPHILS % 0.3 % (0.0-2.0); EOSINOPHILS % 3.1 % (0.0-5.0); HEMATOCRIT. 28.3 % (42.0-52.0); HEMOGLOBIN. 9.8 g/dL (14.0-18.0); MEAN CORPUSCULAR HEMOGLOBIN 30.2 pg (28.0-32.0); MEAN PLATELET VOLUME 8.5 fl (7.4-10.4); MONOCYTES % 9.6 % (2.0-8.0); PLATELET 166 x1000/uL (130-400); RED BLOOD CELL COUNT 3.25 mill/uL (4.7-6.1); RED CELL DISTRIBUTION WIDTH 14.2 % (11.6-14.6)
[2022-02-07 08:00] VITALS: BP 93/57
[2022-02-07] MEDS: INSULIN LISPRO 100 UNITS/ML SUBCUT SCH ×7 (08:23→20:59)
[2022-02-07] MEDS: ENOXAPARIN 40MG/0.4ML SYR SUBCUT SCH (08:28)
[2022-02-07] MEDS: FUROSEMIDE 40MG/4ML VIAL IVP SCH (08:28)
[2022-02-07] MEDS: FAMOTIDINE 20MG TABLET PO SCH ×2 (08:58→21:21)
[2022-02-07] MEDS: SPIRONOLACTONE 25MG TABLET PO SCH (08:58)
[2022-02-07 11:31] VITALS: BP 88/53
[2022-02-07 16:00] VITALS: BP 98/62
[2022-02-07 20:22] VITALS: BP 94/64
[2022-02-07] MEDS: INSULIN GLARGINE 100 UNITS/ML SUBCUT SCH (21:24)
[2022-02-08 00:20] VITALS: BP 119/78
[2022-02-08 04:20] VITALS: BP 102/58
[2022-02-08 06:50] LABS: BASOPHILS % 0.4 % (0.0-2.0); EOSINOPHILS % 3.1 % (0.0-5.0); HEMOGLOBIN. 10.2 g/dL (14.0-18.0); LYMPHOCYTES % 41.3 % (20.0-50.0); MEAN CORPUSCULAR VOLUME 88.3 fL (80.0-94.0); NEUTROPHILS % 45.2 % (40.0-76.0); PLATELET 189 x1000/uL (130-400); RED CELL DISTRIBUTION WIDTH 13.8 % (11.6-14.6)
[2022-02-08] MEDS: BLOOD SUGAR DIAGNOSTIC STRIP TEST SCH ×4 (07:02→21:28)
[2022-02-08 08:00] VITALS: BP 91/48
[2022-02-08] MEDS: INSULIN LISPRO 100 UNITS/ML SUBCUT SCH ×7 (08:57→21:54)
[2022-02-08] MEDS: FUROSEMIDE 40MG/4ML VIAL IVP SCH ×2 (09:00→09:24)
[2022-02-08] MEDS: SPIRONOLACTONE 25MG TABLET PO SCH ×2 (09:00→09:34)
[2022-02-08] MEDS: ENOXAPARIN 40MG/0.4ML SYR SUBCUT SCH (09:24)
[2022-02-08] MEDS: FAMOTIDINE 20MG TABLET PO SCH ×2 (09:24→21:53)
[2022-02-08] MEDS: THIAMINE HCL 100MG TABLET PO SCH (09:24)
[2022-02-08] MEDS: FOLIC ACID 1MG TABLET PO SCH (09:25)
[2022-02-08] MEDS: MORPHINE SULFATE 2 MG/ML CPJ (NOT FOR IM USE) IV PRN ×2 (09:42→15:33)
[2022-02-08 09:49] LABS: CHLORIDE 106 mEq/L (98-107)
[2022-02-08] MEDS: MIDODRINE HCL 5MG TABLET PO SCH ×2 (11:30→19:58)
[2022-02-08 12:00] VITALS: BP 104/69
[2022-02-08 16:00] VITALS: BP 105/58
[2022-02-08 20:12] VITALS: BP 88/59
[2022-02-08] MEDS: MELATONIN 3MG TABLET PO SCH (21:53)
[2022-02-08] MEDS: INSULIN GLARGINE 100 UNITS/ML SUBCUT SCH (21:55)
[2022-02-08 22:53] LABS: CHLORIDE 103 mEq/L (98-107)
[2022-02-09] VITALS (7 sets, daily range): BP systolic 91–113; BP diastolic 53–66
[2022-02-09] MEDS: MORPHINE SULFATE 2 MG/ML CPJ (NOT FOR IM USE) IV PRN ×2 (00:26→21:20)
[2022-02-09] MEDS: MIDODRINE HCL 5MG TABLET PO SCH ×3 (03:51→21:26)
[2022-02-09] MEDS: BLOOD SUGAR DIAGNOSTIC STRIP TEST SCH ×4 (06:44→21:26)
[2022-02-09] MEDS: INSULIN LISPRO 100 UNITS/ML SUBCUT SCH ×8 (07:40→21:23)
[2022-02-09] MEDS: ENOXAPARIN 40MG/0.4ML SYR SUBCUT SCH (08:50)
[2022-02-09] MEDS: FUROSEMIDE 20MG TABLET PO SCH (08:51)
[2022-02-09] MEDS: FAMOTIDINE 20MG TABLET PO SCH ×2 (08:51→21:24)
[2022-02-09] MEDS: FOLIC ACID 1MG TABLET PO SCH (08:51)
[2022-02-09] MEDS: THIAMINE HCL 100MG TABLET PO SCH (08:51)
[2022-02-09] MEDS ORDERED: MIDODRINE HCL 5MG TABLET PO SCH (15:50)
[2022-02-09 16:17] LABS: BASOPHILS % 0.3 % (0.0-2.0); EOSINOPHILS % 2.1 % (0.0-5.0); HEMOGLOBIN. 10.6 g/dL (14.0-18.0); LYMPHOCYTES % 31.7 % (20.0-50.0); MEAN CORPUSCULAR HEMOGLOBIN 30.5 pg (28.0-32.0); MEAN CORPUSCULAR VOLUME 89.2 fL (80.0-94.0); MEAN PLATELET VOLUME 8.2 fl (7.4-10.4); MONOCYTES % 11.3 % (2.0-8.0); NEUTROPHILS % 54.6 % (40.0-76.0); PLATELET 201 x1000/uL (130-400); RED BLOOD CELL COUNT 3.48 mill/uL (4.7-6.1); RED CELL DISTRIBUTION WIDTH 14.4 % (11.6-14.6)
[2022-02-09 16:37] LABS: CHLORIDE 107 mEq/L (98-107)
[2022-02-09] MEDS: LIPASE/PROTEASE/AMYLASE 4,200/14,200/24,600 UNITS CAP DR PO SCH (18:05)
[2022-02-09] MEDS: INSULIN GLARGINE 100 UNITS/ML SUBCUT SCH (21:22)
[2022-02-09] MEDS: MELATONIN 3MG TABLET PO SCH (21:28)
[2022-02-09] MEDS ORDERED: LIPA1CAP27 PO (22:59)
[2022-02-09] MEDS ORDERED: FOLI-43 PO (22:59)
[2022-02-09] MEDS ORDERED: MIDO5TAB4 PO (22:59)
[2022-02-09] MEDS ORDERED: FURO20TA4 PO (22:59)
[2022-02-09] MEDS ORDERED: NITR0.4T49 SL (22:59)
[2022-02-09] MEDS ORDERED: THIA100T72 PO (22:59)
[2022-02-10] VITALS: BP 107/64
[2022-02-10 04:00] VITALS: BP 112/63
[2022-02-10] MEDS: BLOOD SUGAR DIAGNOSTIC STRIP TEST SCH ×2 (07:40→12:55)
[2022-02-10 08:00] VITALS: BP 90/54
[2022-02-10 08:09] LABS: BASOPHILS % 0.3 % (0.0-2.0); EOSINOPHILS % 2.8 % (0.0-5.0); HEMOGLOBIN. 10.1 g/dL (14.0-18.0); LYMPHOCYTES % 33.8 % (20.0-50.0); MEAN PLATELET VOLUME 8.1 fl (7.4-10.4); NEUTROPHILS % 50.1 % (40.0-76.0); PLATELET 199 x1000/uL (130-400); RED BLOOD CELL COUNT 3.37 mill/uL (4.7-6.1); RED CELL DISTRIBUTION WIDTH 14.3 % (11.6-14.6)
[2022-02-10 08:21] LABS: CHLORIDE 108 mEq/L (98-107)
[2022-02-10] MEDS: INSULIN LISPRO 100 UNITS/ML SUBCUT SCH ×3 (09:03→13:28)
[2022-02-10] MEDS: FUROSEMIDE 20MG TABLET PO SCH (09:12)
[2022-02-10] MEDS: FAMOTIDINE 20MG TABLET PO SCH (09:12)
[2022-02-10] MEDS: THIAMINE HCL 100MG TABLET PO SCH (09:12)
[2022-02-10] MEDS: ENOXAPARIN 40MG/0.4ML SYR SUBCUT SCH (09:12)
[2022-02-10] MEDS: LIPASE/PROTEASE/AMYLASE 4,200/14,200/24,600 UNITS CAP DR PO SCH ×2 (09:12→13:35)
[2022-02-10] MEDS: FOLIC ACID 1MG TABLET PO SCH (09:12)
[2022-02-10] MEDS: MIDODRINE HCL 5MG TABLET PO SCH (09:13)
[2022-02-10 12:00] VITALS: BP 117/72
[2022-02-10] MEDS ORDERED: GADOTERATE MEGLUMINE 5 MMOL/10 ML VIAL IV ONE (13:21)
[2022-02-10 16:00] VITALS: BP 109/64
[2022-02-10] MEDS ORDERED: LIPASE/PROTEASE/AMYLASE 4,200/14,200/24,600 UNITS CAP DR PO SCH (18:10)
[2022-02-11] MEDS ORDERED: LOPE2CAP PO (05:06)
[2022-02-11] MEDS ORDERED: TRAM100C3 PO (05:06)
[2022-02-11] MEDS ORDERED: INSU100V51 SQ (05:06)
== END 2022-02-10 16:50 | DRG 637 ==
LOC: ER 16:21 → EDBEDREQTM 20:57 → EDBEDREQ 20:57 → 7WST 21:43 → EDBEDREQ 21:50 → EDBEDREQSVC 21:50 → EDBEDREQTM 21:50 → SUPCPDRO 23:14 → CANRESERV 02-05 07:25 → ENRESERV 02-05 07:25 → EDBEDREQSVC 02-05 11:28 → CANRESERV 02-05 11:29 → ENRESERV 02-05 11:29 → 7WST 02-06 08:17
PROVIDERS: ADMIT Internal Medicine; ATTEND Internal Medicine
DX: E11.10 Type 2 diabetes mellitus with ketoacidosis without coma (principal); G82.50 Quadriplegia, unspecified; I50.31 Acute diastolic (congestive) heart failure; E44.1 Mild protein-calorie malnutrition; E87.1 Hypo-osmolality and hyponatremia; K86.1 Other chronic pancreatitis; N13.30 Unspecified hydronephrosis; E11.42 Type 2 diabetes mellitus with diabetic polyneuropathy; I11.0 Hypertensive heart disease with heart failure; K29.70 Gastritis, unspecified, without bleeding; Z20.822 Contact with and (suspected) exposure to COVID-19; E11.40 Type 2 diabetes mellitus with diabetic neuropathy, unspecified; E11.65 Type 2 diabetes mellitus with hyperglycemia; D64.9 Anemia, unspecified; K80.20 Calculus of gallbladder without cholecystitis without obstruction; R74.01 Elevation of levels of liver transaminase levels; I95.9 Hypotension, unspecified; R13.10 Dysphagia, unspecified; M48.02 Spinal stenosis, cervical region; M48.061 Spinal stenosis, lumbar region without neurogenic claudication; G89.29 Other chronic pain; K52.9 Noninfective gastroenteritis and colitis, unspecified; K82.8 Other specified diseases of gallbladder; F17.210 Nicotine dependence, cigarettes, uncomplicated; Z68.21 Body mass index [BMI] 21.0-21.9, adult; Z79.4 Long term (current) use of insulin; Z79.899 Other long term (current) drug therapy; Z83.3 Family history of diabetes mellitus; Z82.49 Family history of ischemic heart disease and other diseases of the circulatory system
CPT/HCPCS: 36415; 36600; 70551; 71045; 72141; 72146; 72148; 74018; 74176; 74183; 74230; 76700; 80048; 80053; 80061; 80076; 81003; 82010; 82375; 82550; 82553; 82607; 82705; 82746; 82805; 82962; 83036; 83540; 83550; 83605; 83735; 83880; 83930; 84100; 84134; 84439; 84443; 84484; 85025; 87015; 87045; 87426; 87427; 87449; 89055; 92610; 92611; 93005; 93306; 93970; 97162; 97166; 97530; 99291; A9577; C1893; J1650; J1815; J1940; J2270; J2405; J3490; J7030; J7050; J7060

== ENCOUNTER 2022-09-27 20:13 | Emergency (ER) | payer MEDICARE, MEDICAID ==
[~2022-09-27] VITALS: Ht 162.6 cm; Wt 65.0 kg
[~2022-09-27 20:13] MED LIST changes: +AMYL1CAP59 PO; +ASCO500T20 PO; +ASPI-986 MT; +ERGO1250 PO; +ERGO50CA PO; +FAMO20TA8 PO; +FERR-63 PO; +FLOR PO; +FOLI-43 PO; +INSHUMSS SUBCUT; +INSU100I28 SQ; -INSU3INS6 SUBCUT; -LANTUSUD SUBCUT; -LIPA1CAP27 PO; +LOPE2CAP PO; +MELA3TAB40 PO; -METO-293 PO; +MIDO5TAB4 PO; -NITR0.4T49 SL; -OMEP40CA20 MT; +THIA100T72 PO; +[UNRECOGNIZED DRUG - OTHER] MC; -lantus
[2022-09-27 20:15] VITALS: O2SAT 99
[2022-09-27] MEDS ORDERED: ONDANSETRON HCL 4MG/2ML INJ IV STA (21:08)
[2022-09-27] MEDS ORDERED: PANTOPRAZOLE SODIUM 40 MG/VIAL IV STA (21:08)
[2022-09-27] MEDS ORDERED: SODIUM CHLORIDE 0.9% 1,000 ML IV ONE (21:15)
[2022-09-27] MEDS ORDERED: MORPHINE SULFATE 2 MG/ML CPJ (NOT FOR IM USE) IV ONE (21:15)
[2022-09-27 21:44] LABS: BASOPHILS % 0.3 % (0.0-2.0); EOSINOPHILS % 0.3 % (0.0-5.0); HEMATOCRIT. 37.5 % (42.0-52.0); HEMOGLOBIN. 12.6 g/dL (14.0-18.0); LYMPHOCYTES % 16.7 % (20.0-50.0); MEAN CORPUSCULAR HEMOGLOBIN 28.4 pg (28.0-32.0); MEAN CORPUSCULAR HGB CONC 33.6 g/dL (31.0-37.0); MEAN CORPUSCULAR VOLUME 84.6 fL (80.0-94.0); MEAN PLATELET VOLUME 7.7 fl (7.4-10.4); NEUTROPHILS % 75.7 % (40.0-76.0); PLATELET 479 x1000/uL (130-400); RED BLOOD CELL COUNT 4.43 mill/uL (4.7-6.1); RED CELL DISTRIBUTION WIDTH 13.3 % (11.6-14.6); WHITE BLOOD COUNT 7.2 x1000/uL (4.5-11.0)
[2022-09-27 21:46] LABS: INR 1.5; PROTHROMBIN TIME 15.5 sec (9.6-11.0)
[2022-09-27 21:50] LABS: CHLORIDE 91 mEq/L (98-107); INDEX HEMOLYSI 2 (1-3); INDEX ICTERIC 1 (1-4); INDEX LIPEMIC 1 (1-3); POTASSIUM 4.1 mEq/L (3.5-5.1); SODIUM 126 mEq/L (136-145)
[2022-09-27 22:05] LABS: ALANINE AMINOTRANSFERASE 14 IU/L (13-61); ALBUMIN 2.5 g/dL (3.4-5.0); ASPARTATE AMINOTRANSFERASE 10 IU/L (15-37); BILIRUBIN TOTAL 0.4 mg/dL (0.1-1.0); CALCIUM 8.9 mg/dL (8.5-10.1); CARBON DIOXIDE 30 mEq/L (21-32); CREATININE 0.7 mg/dL (0.6-1.3); PROTEIN TOTAL 7.8 g/dL (6.0-8.3); TROPONIN I HIGH SENSITIVITY 4 ng/L (<78); UREA NITROGEN BLOOD 9 mg/dL (7-21)
[2022-09-27 22:18] LABS: GLUCOSE 461 mg/dL (70-105)
[2022-09-27] MEDS ORDERED: METO5TAB86 MT (23:17)
[2022-09-27] MEDS ORDERED: TOPUD MT (23:17)
[2022-09-27] MEDS ORDERED: FAMO20TA8 PO (23:17)
[2022-09-27] MEDS ORDERED: TRAM50TA3 MT (23:18)
[2022-09-27] MEDS ORDERED: INSULIN REGULAR (HUMULIN R) 300UNITS/3ML VIAL IV ONE (23:30)
[2022-09-28 00:03] VITALS: BP 133/88; PULSE 75; RESP 15; TEMP 98.8
== END 2022-09-28 00:05 | disposition home or self-care (01) ==
LOC: ER 20:13
DX: R10.9 Unspecified abdominal pain (principal); R06.02 Shortness of breath; E11.9 Type 2 diabetes mellitus without complications; I10 Essential (primary) hypertension; Z79.899 Other long term (current) drug therapy
CPT/HCPCS: 99285; 96374; 96375; 96361; 80053; 82962; 83690; 85025; 85610; 84484; 36415; 93005; J2405; C9113; J2270; J7030